=== PATIENT | male | born 1965 | race Caucasian/White ===

== ENCOUNTER 2019-12-18 13:00 | Day surgery (SDC) | payer OTHER, SELFPAY ==
[2019-12-18] VITALS (10 sets, daily range): BP systolic 105–132; BP diastolic 69–83; PULSE 75–109; RESP 10–18; TEMP 36.2–36.9; O2SAT 92–100; BMI 21.7
[2019-12-18] MEDS: SODIUM CHLORIDE 0.9% 1,000 ML 200 ML IV ×2 (13:33→15:47)
--- NOTE | 2019-12-18 14:05 | PM.HP.1 ---
History of Present Illness History of Present Illness Date Patient Seen: 12/18/19 Time Patient Seen: 14:05 Chief complaint: [id number] SCREENING COLONOSCOPY Narrative: 54-year-old white male asymptomatic here for his 1st screening colonoscopy. Patient History Medical History Constipation (Acute) History of frequent headaches (Acute) Hyperlipemia (Acute) Family & Social History Social History: household members spouse,significant other Tobacco & Substance use: Smoking Status Never smoker alcohol intake frequency a few times a week Substance Use Type does not use Meds Home Medications and Allergies Home Medications Medication Instructions Recorded Confirmed Type Men's 50 Plus Daily Formula 1 cap PO DAILY 12/18/19 12/18/19 History amitriptyline 150 mg PO DAILY 12/18/19 12/18/19 History atorvastatin 10 mg PO DAILY 12/18/19 12/18/19 History [id number] 1 cap PO Q4-6H PRN 12/18/19 12/18/19 History [Butalbital Compound W/Codeine] docusate sodium 100 mg PO DAILY 12/18/19 12/18/19 History Allergies Allergy/AdvReac Type Severity Reaction Status Date / Time azithromycin Allergy Severe Swelling Verified 12/18/19 13:16 [From Zithromax Z-Jim] of Lip/Tongue/Throat Review of Systems Review of Systems ROS: Yes All systems reviewed with the patient and are negative except as otherwise documented Exam Vital Signs (past 8 hours): - 12/18/19 13:24 Temperature 97.6 F Pulse Rate 109 H Respiratory Rate 16 Blood Pressure 132/83 Pulse Oximetry 100 Oxygen Delivery Method Room Air Narrative Exam Narrative: Patient is alert and oriented no complaints Ears nose and throat are unremarkable Lungs are clear Heart regular rhythm no murmur Abdomen soft nontender Rectal be done at colonoscopy Assessment & Plan Assessment & Plan narrative: 54-year-old white male here for his 1st screening colonoscopy he is asymptomatic. He has no unanswered questions.
[2019-12-18] MEDS: MIDAZOLAM 5 MG/5 ML VIAL IV (14:16)
[2019-12-18] MEDS: fentaNYL 250 MCG/5 ML INJ IV (14:16)
--- NOTE | 2019-12-18 14:41 | PM.OP.ENDO ---
Operative Date/Time/Diagnoses Date of procedure: 12/18/19 Time of procedure: 14:41 Pre-op diagnosis: Screening colonoscopy Post-op diagnosis: same Procedure & Clinicians Study performed: Total colonoscopy to the cecum with a very poor prep could not exclude small polyps Same procedure as scheduled: Yes Surgeon: Hudson Dexter Procedure Notes SCOAP/Timeout: Was done Procedure in detail: Patient was properly identified during surgical pause throughout procedure he was given 5 mg of Versed and 200 micro g of fentanyl and remained comfortable. The patient's prep was very poor. However I was able to advance the scope from the anus to the cecum. Because of the poor prep I cannot exclude small polyps. Large polyps and tumors were not identified. Procedure was well tolerated. Scope withdrawal time: 10 Sedation minutes: 20 Specimen(s): none sent Complications: none Impression: No significant abnormalities were encountered however the prep was very poor. Because of that I could not exclude small polyps. As a result recommend colonoscopy in 5 years with a double prep. Post-procedure Recommendations: Colonscopy in 5 years Disposition: PACU
--- NOTE | 2019-12-18 15:15 | SUR.PHASEII ---
Report received. Patient pale, mildly diaphoretic. C/O nausea and dizziness. VS stable. Queaze and gingerale provided. Patient reported nausea improving. Call light within reach.
[2019-12-18] MEDS: ONDANSETRON 4 MG/2 ML INJ IV (15:49)
--- NOTE | 2019-12-18 15:50 | SUR.PHASEII ---
Pt dozing, c/o unsteadiness. Sat up suddenly and vomited 100mls of clear, yellow fluid. VS stable. Dr. Dexter notified of status and IV fluids hung. VVO IV Zofran, which was provided.
--- NOTE | 2019-12-18 16:18 | SUR.PHASEII ---
Patient reported nausea and feeling of unsteadiness improved. Able to sit and stand independently.
== END 2019-12-18 16:16 | disposition home or self-care (01) ==
PROVIDERS: PCP Internal Medicine; Referring Provider Surgery; Visit Provider Surgery
PROC: 0DJD8ZZ Inspection of Lower Intestinal Tract, Via Natural or Artificial Opening Endoscopic (ICD-10-PCS; CPT 45378; principal; 2019-12-18 14:30)
DX: Z12.11 Encounter for screening for malignant neoplasm of colon (principal)
CPT/HCPCS: 45378; 99152; J2250; J2405; J3010